=== PATIENT | female | born 1940 | race Hispanic/Latino ===

== ENCOUNTER → 2018-10-16 | Outpatient (CLI) | payer OTHER, MEDICARE ==
[~2018-10-16] MED LIST: ASPI-555 PO; ATOR40TA71 PO; BUSP5TAB3 PO; IRON PO; LISI1TAB13 PO; METO-409 PO; OMEP40CA37 PO; VENL75TA89 PO
== END | disposition home or self-care (01) ==
LOC: RAH 10:51
PROVIDERS: ATTEND Internal Medicine
DX: I70.203 Unspecified atherosclerosis of native arteries of extremities, bilateral legs (principal)
CPT/HCPCS: 93925

== ENCOUNTER → 2019-10-23 | Outpatient (CLI) | payer OTHER, MEDICARE ==
[~2019-10-23] MED LIST changes: -LISI1TAB13 PO; +LISI1TAB29 PO; +OMEP40CA13 PO; -OMEP40CA37 PO
== END | disposition home or self-care (01) ==
LOC: RAH 08:47
PROVIDERS: ATTEND Internal Medicine
DX: R22.42 Localized swelling, mass and lump, left lower limb (principal)
CPT/HCPCS: 93971

== ENCOUNTER 2020-01-23 10:29 | Inpatient (IN) | payer OTHER, MEDICARE ==
[~2020-01-23] VITALS: Ht 139.7 cm; Wt 50.6 kg
[~2020-01-23 10:29] MED LIST changes: -ASPI-555 PO; +ASPI-556 PO
[2020-01-23 11:28] LABS: BASOPHILS % (AUTO) 0.7 % (0.0-5.0); EOSINOPHILS % (AUTO) 1.5 % (0.0-8.0); HEMATOCRIT 33.4 % (36-48); LYMPHOCYTES % (AUTO) 17.8 % (21.0-51.0); MEAN CORPUSCULAR HEMOGLOBIN 30.5 pg (27.0-33.0); MEAN CORPUSCULAR HGB CONC 33.5 g/dL (32.0-36.0); MONOCYTES % (AUTO) 8.2 % (3.0-13.0); NEUTROPHILS % (AUTO) 71.3 % (40.0-77.0); PLATELET COUNT (AUTO) 293 K/uL (130-400); RED BLOOD CELL COUNT(AUTO) 3.67 MIL/uL (4.00-5.50); RED CELL DISTRIBUTION WIDTH 12.5 % (11.0-15.5); WHITE BLOOD COUNT (AUTO) 8.6 K/uL (4.8-10.8)
[2020-01-23 11:44] LABS: CREATININE 1.8 mg/dL (0.5-1.5); POTASSIUM 3.8 mmol/L (3.5-5.1)
[2020-01-23 11:46] LABS: INR 0.94 (0.85-1.15); PARTIAL THROMBOPLASTIN TIME 30.1 SEC (26.3-35.5); PROTHROMBIN TIME 10.2 SEC (9.6-11.6)
[2020-01-23] MEDS ORDERED: CEFAZOLIN SODIUM 1 GM VIAL ONE ×2 (13:09→20:21)
[2020-01-23] MEDS ORDERED: ACETAMINOPHEN 325 MG TAB PO PRN (20:00)
[2020-01-23] MEDS ORDERED: POTASSIUM CHLORIDE 10% ELIXIR 20 MEQ/15 ML UDCUP PO PRN (20:00)
[2020-01-23] MEDS ORDERED: POTASSIUM CHLORIDE 20MEQ/100ML 100 ML IV PRN (20:00)
[2020-01-23] MEDS: CEFAZOLIN SODIUM 1 GM VIAL IVP SCH (20:00)
[2020-01-23] MEDS ORDERED: LIDOCAINE HCL-MPF 1% 2ML VIAL IV PRN (20:00)
[2020-01-23] MEDS ORDERED: ACETAMINOPHEN-CODEINE 300/30MG TAB PO PRN (20:00)
[2020-01-23] MEDS ORDERED: POTASSIUM CHLORIDE 20 MEQ ERTAB PO PRN (20:00)
[2020-01-23] MEDS ORDERED: ZOLPIDEM TARTRATE 5 MG TAB PO PRN (20:00)
[2020-01-23] MEDS ORDERED: ONDANSETRON HCL 4 MG/2 ML VIAL IVP PRN (20:00)
[2020-01-23] MEDS: ATORVASTATIN CALCIUM 40 MG TABLET PO SCH (21:00)
[2020-01-23] MEDS: FERROUS SULFATE 325 MG TABLET.DR PO SCH (21:00)
[2020-01-23] MEDS: VENLAFAXINE HCL 75 MG TAB PO SCH (21:00)
[2020-01-23] MEDS: HEPARIN SODIUM 5000UNIT/ML 1ML VIAL SQ SCH (21:00)
[2020-01-23] MEDS ORDERED: HYDRALAZINE HCL 20 MG/ML VIAL ONE (21:01)
[2020-01-23] MEDS ORDERED: ATORVASTATIN CALCIUM 40 MG TABLET ONE (21:01)
[2020-01-24] VITALS (7 sets, daily range): BP systolic 131–190; BP diastolic 51–76
[2020-01-24] MEDS: HYDRALAZINE HCL 20 MG/ML VIAL IV PRN ×3 (00:01→16:28)
--- NOTE | 2020-01-24 00:40 | NUR ---
[facility] np about continous blood pressure. he ordered another 10 mg of hydralazine and 1 inch of nitro ointment every 6 hours.
[2020-01-24] MEDS ORDERED: NITROGLYCERIN 1GM/1 INCH PACKET TD ONE ×2 (00:56→04:40)
[2020-01-24] MEDS: NITROGLYCERIN 1GM/1 INCH PACKET TD SCH ×4 (01:00→18:30)
[2020-01-24] MEDS ORDERED: CEFAZOLIN SODIUM 1 GM VIAL ONE (03:48)
[2020-01-24] MEDS: CEFAZOLIN SODIUM 1 GM VIAL IVP SCH ×3 (03:50→20:31)
[2020-01-24 04:42] LABS: HEMATOCRIT 32.2 % (36-48); MEAN CORPUSCULAR HEMOGLOBIN 30.3 pg (27.0-33.0); MEAN CORPUSCULAR HGB CONC 33.5 g/dL (32.0-36.0); MEAN CORPUSCULAR VOLUME 90.4 fL (79-99); RED BLOOD CELL COUNT(AUTO) 3.56 MIL/uL (4.00-5.50); RED CELL DISTRIBUTION WIDTH 12.6 % (11.0-15.5); WHITE BLOOD COUNT (AUTO) 9.6 K/uL (4.8-10.8)
[2020-01-24 05:12] LABS: CREATININE 1.8 mg/dL (0.5-1.5); POTASSIUM 3.9 mmol/L (3.5-5.1)
[2020-01-24] MEDS: HEPARIN SODIUM 5000UNIT/ML 1ML VIAL SQ SCH ×2 (09:00→20:50)
[2020-01-24] MEDS: METOPROLOL SUCCINATE 50 MG TAB.SR.24H PO SCH (09:31)
[2020-01-24] MEDS: ASPIRIN 81 MG EC TAB PO SCH (09:31)
[2020-01-24] MEDS: LISINOPRIL 20 MG TABLET PO SCH (09:32)
[2020-01-24] MEDS: HYDROCHLOROTHIAZIDE 25 MG TABLET PO SCH (09:32)
[2020-01-24] MEDS: FERROUS SULFATE 325 MG TABLET.DR PO SCH ×2 (09:32→20:31)
[2020-01-24] MEDS: PANTOPRAZOLE SODIUM 40 MG TABLET.DR PO SCH (09:32)
[2020-01-24] MEDS ORDERED: LIDOCAINE 1%-EPI 1:100,000 20 ML VIAL IJ SCH (11:30)
--- NOTE | 2020-01-24 14:22 | NUR ---
DISCHARE PLANNING WITH PATIENT. MET W PATIENT, AMBULATORY IN THE ROOM. PATIENT STATES LIVES WITH FRED ROGERS HER SPOUSE. 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 WHEN ASKED PER DAY OR PER WEEK, WAS UNCERTAIN HOW MANY HOURS SHE DOES HAVE. STATES SHE HAS A ROLLING WALKER AND A WHEELCHAIR. PT IS AMBULATORY IN THE ROOM WITH OUT OBVIOUS DEFICITS. ADVISED THAT PATIENT WOULD BE NEEDING HOME HEALTH FOR WOUND CARE. VERBAL CONSENT FOR HOME HEALTH TAKEN- ATTEMPTED TO CALL [facility]ISTED IN [facility]ART [facility]ANN[facility], NO ANSWER. CALL TO PHONE # [phone]. ANSWERED BY FEMALE, STATES FRED NOT AT HOME, WILL LET HIM KNOW WHEN HE GETS HOME ANOTHER TRIP TO BEDSIDE, VERBAL CONSENT FROM PATIENT, PATIENT IS STRACHING, OFFAL BALER ADVISED, WILL SEND INFO TO HCD NOW Addendum: 01/24/20 at 1439 by JUAN MIGUEL GILMORE RN CM Amended: Links added.
--- NOTE | 2020-01-24 14:44 | NUR ---
DISPO: HOME WITH HOME HEALTH- HOME CARE DIMENSIONS Addendum: 01/24/20 at 1451 by JUAN MIGUEL GILMORE RN CM Amended: Links added.
[2020-01-24] MEDS ORDERED: CLIN150C10 PO (15:45)
--- NOTE | 2020-01-24 16:04 | NUR ---
CALL [facility]- UNABLE TO START SERVICE UNTIL TUESDAY- ADVISED Agustin STALLINGS, ORDERS TO DC IN AM W SAME ORDERS AFTER DRESSING CHANGE, HCD TO START TUESDAY. ADVISED ANGIE CHARGE VIA PHONE. CALL TO [facility]- ADVISED OF SAME, STATES SHE WOULD LET SPOUSE KNOW
[2020-01-24] MEDS: ATORVASTATIN CALCIUM 40 MG TABLET PO SCH (20:31)
[2020-01-24] MEDS: VENLAFAXINE HCL 75 MG TAB PO SCH (20:31)
[2020-01-25 00:03] VITALS: BP 128/55
[2020-01-25] MEDS: NITROGLYCERIN 1GM/1 INCH PACKET TD SCH ×2 (01:59→07:42)
[2020-01-25 04:10] VITALS: BP 137/57
[2020-01-25] MEDS: CEFAZOLIN SODIUM 1 GM VIAL IVP SCH ×2 (05:03→12:45)
[2020-01-25 08:00] VITALS: BP 131/70
[2020-01-25] MEDS: HEPARIN SODIUM 5000UNIT/ML 1ML VIAL SQ SCH (09:00)
[2020-01-25] MEDS: LISINOPRIL 20 MG TABLET PO SCH (10:50)
[2020-01-25] MEDS: ASPIRIN 81 MG EC TAB PO SCH (10:50)
[2020-01-25] MEDS: PANTOPRAZOLE SODIUM 40 MG TABLET.DR PO SCH (10:50)
[2020-01-25] MEDS: HYDROCHLOROTHIAZIDE 25 MG TABLET PO SCH (10:50)
[2020-01-25] MEDS: FERROUS SULFATE 325 MG TABLET.DR PO SCH (10:50)
[2020-01-25] MEDS: METOPROLOL SUCCINATE 50 MG TAB.SR.24H PO SCH (10:51)
[2020-01-25 12:00] VITALS: BP 160/68
--- NOTE | 2020-01-25 13:00 | NUR ---
DRESSING CHANGE ABDOMINAL DRESSING CHANGE PERFORMED PRIOR TO DISCHARGE. RLQ SMALL INCISION PACKED WITH IODOFORM 1/4" GAUZE, COVERED WITH GAUZE AND ABD PAD. LLQ SMALL INCISIONS X2 IODOFORM 1/4" GAUZE, COVERED WITH GAUZE AND ABD PAD. PATIENT INSTRUCTED TO KEEP ABDOMINAL DRESSINGS DRY AND INTACT.
== END 2020-01-25 16:00 | disposition home health service (06) | DRG 581 ==
LOC: EDH 10:29 → EDHIP 10:30 → 3CH 23:41
PROVIDERS: ADMIT Internal Medicine Critical Care Medicine; ATTEND Internal Medicine Critical Care Medicine
PROC: 0J980ZZ Drainage of Abdomen Subcutaneous Tissue and Fascia, Open Approach (ICD-10-PCS; principal; 2020-01-24)
DX: L02.211 Cutaneous abscess of abdominal wall (principal); I10 Essential (primary) hypertension; E55.9 Vitamin D deficiency, unspecified; M85.80 Other specified disorders of bone density and structure, unspecified site; E78.5 Hyperlipidemia, unspecified; K29.70 Gastritis, unspecified, without bleeding; K59.00 Constipation, unspecified; F41.9 Anxiety disorder, unspecified; G47.00 Insomnia, unspecified; Z79.899 Other long term (current) drug therapy; Z79.82 Long term (current) use of aspirin
CPT/HCPCS: 36415; 71045; 80048; 85025; 85027; 85610; 85730; 87040; 87070; 87071; 87076; 87077; 87186; 87205; G0378; J0360; J0690; J1644; J3490